=== PATIENT | female | born 1975 ===

== ENCOUNTER 2018-01-18 09:50 | Day surgery (SDC) | payer OTHER ==
[2017-10-16 13:45] VITALS: BMI 20.7
[2018-01-18] MEDS ORDERED: Gentamicin 160 MG in Sodium Chloride 0.9% 100 ML IVPB ONE (12:19)
[2018-01-18] MEDS ORDERED: Midazolam 2 MG/2 ML VIAL ONE (12:21)
[2018-01-18] MEDS ORDERED: Propofol 10 mg/ml Inj (20 ML) ONE (12:21)
[2018-01-18] MEDS ORDERED: Ciprofloxacin 400mg/200ml D5W 400 MG/200 ML BAG IVPB ONE (12:56)
[2018-01-18] MEDS ORDERED: Lidocaine 2% Jelly (Uro-Jet) ONE (13:01)
--- NOTE | 2018-01-18 13:17 | PCM.SURG1 ---
Surgeon's Initial Post Op Note - Surgeon's Notes Surgeon: Lai Research Mechanic: SULMA Type of Anesthesia: General LMA Anesthesia Administered By: Staff Pre-Operative Diagnosis: Stent Operative Findings: stent Post-Operative Diagnosis: stent Operation Performed: Cysto removal of stent Specimen/Specimens Removed: stent Estimated Blood Loss: EBL {In ML}: 0 Blood Products Given: N/A Drains Used: No Drains Post-Op Condition: Good Date of Surgery/Procedure: 01/18/18 Time of Surgery/Procedure: 13:17
[2018-01-18] MEDS ORDERED: HYDROmorphone 0.5 mg/0.5 ml ISec IVP PRN (13:22)
[2018-01-18 13:42] VITALS: TEMP 98.2; O2SAT 100
[2018-01-18 14:40] VITALS: PULSE 69
[2018-01-18 15:31] VITALS: BP 111/63; RESP 16
--- NOTE | 2018-01-18 16:56 | RAD ---
Date of service: 01/18/2018 HISTORY: LT. RENAL STONE COMPARISON: None available. FINDINGS: BOWEL: Normal. No obstruction. No free air. BONES: Normal. OTHER FINDINGS: In situ left ureteral stent. Questionable tiny calcification versus bowel related artifact overlying the left upper abdomen near the 1st bend of the proximal coil left ureteral stent IMPRESSION: In situ left ureteral stent. Questionable artifact versus tiny calcification left upper abdomen as described
--- NOTE | 2018-01-19 00:19 | OP ---
PROCEDURE DATE: 01/18/2018 PREOPERATIVE DIAGNOSIS: Indwelling left ureteral stent. POSTOPERATIVE DIAGNOSIS: Indwelling left ureteral stent. PROCEDURE: Cystoscopy, removal of the stent, and KUB. FINDINGS: A stent in the left collecting system with no evidence of calculi. DESCRIPTION OF PROCEDURE: As follows. The patient was asked to sign a detailed informed consent after full explanation of the risks and complications of this procedure. She was brought into the room, and a time-out was taken according to the rules and regulations of [facility]. After careful draping and prepping and after receiving prophylactic antibiotics, she was cystoscoped with a #21 Storz panendoscope. The urethra was normal. The bladder was entered atraumatically. The right ureteral orifice was normal and effluxed clear urine. There were no stones within the bladder. The left ureteral orifice had a stent protruding through it. It was grasped and removed. There was no evidence of calculi. KUB done prior to the procedure was negative for calculi. Stefan Hoyt MD
== END 2018-01-18 15:32 | disposition home or self-care (01) ==
LOC: C.SDS 09:50
PROVIDERS: ATTEND Urology
DX: Z46.6 Encounter for fitting and adjustment of urinary device (principal)
CPT/HCPCS: 52310; 74018; 88300; J0744